=== PATIENT | female | born 1985 | race Caucasian/White ===

== ENCOUNTER 2025-01-12 09:51 | Emergency (ER) | payer OTHER ==
[2025-01-12] MEDS: Bacitracin Oint 1 GM U/D Packet TOP ONE (10:42)
[2025-01-12] MEDS: Diphtheria,Pertussis(Acell),Tetanus Vaccine 0.5 ML Syringe IM ONE (10:42)
== END 2025-01-12 10:52 | disposition home or self-care (01) ==
LOC: JP.ED 09:51
DX: S60.450A Superficial foreign body of right index finger, initial encounter (principal); W45.8XXA Other foreign body or object entering through skin, initial encounter; Y93.89 Activity, other specified
CPT/HCPCS: 90471; 90715; 99283; 99283-25